=== PATIENT | female | born 2000 | race American Indian/Alaskan Native ===

== ENCOUNTER 2025-04-01 19:08 | Emergency (ER) | payer OTHER ==
[~2025-04-01] VITALS: Ht 157.5 cm; Wt 72.6 kg
[2025-04-01 19:57] VITALS: BP 119/62; O2SAT 98
[2025-04-01] MEDS ORDERED: LIDOCAINE HCL 1% 10ML VIAL ONE (21:12)
== END 2025-04-01 21:41 | disposition home or self-care (01) ==
LOC: ER 19:08
DX: S01.81XA Laceration without foreign body of other part of head, initial encounter (principal); W45.8XXA Other foreign body or object entering through skin, initial encounter; Y93.89 Activity, other specified; Y92.89 Other specified places as the place of occurrence of the external cause; Y99.8 Other external cause status